=== PATIENT | male | born 1980 | race Caucasian/White ===

== ENCOUNTER 2017-11-17 22:37 | Emergency (ER) | payer MEDICAID ==
[2017-11-17 22:41] VITALS: BP 115/73; PULSE 82; RESP 18; TEMP 97.7; O2SAT 95
[2017-11-17] MEDS ORDERED: CHLORDIAZEPOXIDE 25MG PREPK#6 BTL TAKEHOME ONE (23:33)
--- NOTE | 2017-11-17 23:35 | EDPHY ---
H & P Time Seen by Provider: 11/17/17 23:17 HPI/ROS: CHIEF COMPLAINT: Heroin withdrawal HISTORY OF PRESENT ILLNESS: 37-year-old male presents to the emergency department by private vehicle with symptoms of heroin withdrawal. Patient feels anxious, feels nauseous, abdominal pain, diffuse myalgias. He has been staying at the [facility] for last few days. His last use of heroin was over 24 hr ago. He was sent to the emergency department for evaluation and for prepack of Librium to take with him back to the [facility] so his withdrawal symptoms could be treated. He denies chest pain or difficulty breathing. No history of vomiting or diarrhea. REVIEW OF SYSTEMS: Constitutional: No fever, no chills. Eyes: No double or blurry vision. ENT: No sore throat. Respiratory: No cough, no shortness of breath. Cardiac: No chest pain. Gastrointestinal: No abdominal pain, vomiting or diarrhea. Genitourinary: No dysuria. Musculoskeletal: No neck or back pain. Skin: No rashes. Neurological: No headache. Past Medical/Surgical History: Substance abuse Social History: Single and lives in [place] Smoking Status: Heavy smoker Physical Exam: General Appearance: Alert, no distress. Vital signs are stable. No signs of trauma to his head. Eyes: Pupils equal and round. Extraocular motions are all intact. ENT: Mouth: Mucous membranes moist. Respiratory: No wheezing, rhonchi, or rales, lungs are clear to auscultation. Cardiovascular: Regular rate and rhythm. Gastrointestinal: Abdomen is soft and nontender, no masses, no rebound or guarding, bowel sounds normal. Neurological: Alert and oriented x 3, cranial nerves II through XII grossly intact Skin: Warm and dry, no rashes. Musculoskeletal: Nontender to palpate along the cervical, thoracic or lumbar spine. Neck is supple. Extremities: Full range of motion and no peripheral edema. Psychiatric: Patient is oriented X 3, there is no agitation. Constitutional: Initial Vital Signs Temperature (C) 36.5 C 11/17/17 22:38 Heart Rate 82 11/17/17 22:38 Respiratory Rate 18 11/17/17 22:38 Blood Pressure 115/73 11/17/17 22:38 O2 Sat (%) 95 11/17/17 22:38 O2 Delivery Mode Room Air Allergies/Adverse Reactions: No Known Allergies Allergy (Unverified 11/17/17 22:38) Home Medications: Medication Instructions Recorded NK [No Known Home Meds] 11/17/17 Medical Decision Making ED Course/Re-evaluation: We did speak with the addiction recovery says her. The patient is welcome back to the [facility]. They are requesting a prepack of Librium for him to take with him to go back to the [facility]. I do not think the patient needs an IV or IV fluids. I do not think laboratory studies are indicated. Patient has not been vomiting. He is tolerating p.o. Fluids. He will be discharged to the [facility]. Differential Diagnosis: Including but not limited to heroin withdrawal, electrolyte abnormality, substance abuse, anaphylaxis, myocardial infarction - Data Points Medications Given: Discontinued Medications Chlordiazepoxide (Librium 25 Mg Prepack#6) 1 btl TAKEHOME EDNOW ONE Stop: 11/17/17 23:34 Last Admin: 11/17/17 23:40 Dose: 1 btl Departure - Departure Disposition: Home, Routine, Self-Care Clinical Impression: Heroin withdrawal Condition: Good Instructions: Polysubstance Abuse (ED) Additional Instructions: You were given a take home pack of Librium for you to take to the [facility] for your heroin withdrawal symptoms. Referrals: [facility] Detox 24 Hours [Outside] - As per Instructions
== END 2017-11-17 23:59 | disposition home or self-care (01) ==
DX: F11.23 Opioid dependence with withdrawal (principal)

== ENCOUNTER 2018-01-23 17:45 | Emergency (ER) | payer MEDICAID ==
[2018-01-23 17:51] VITALS: BP 115/77
--- NOTE | 2018-01-23 18:07 | EDPHY ---
H & P Stated Complaint: FROM [facility] Time Seen by Provider: 01/23/18 18:00 HPI/ROS: CHIEF COMPLAINT: Narcotic withdrawal HISTORY OF PRESENT ILLNESS: The patient presents the emergency department from the [facility] requesting Librium. He is currently at that facility for treatment of narcotic withdrawal. He last used narcotics on Friday. He has had associated symptoms of nausea and tremor. The patient denies any chest pain or difficulty breathing. He denies additional acute complaints. The patient takes no regular medications. REVIEW OF SYSTEMS: A comprehensive 10 point review of systems is otherwise negative aside from elements mentioned in the history of present illness. Source: Patient Exam Limitations: No limitations - Personal History Current Tetanus Diphtheria and Acellular Pertussis (TDAP): Yes - Medical/Surgical History Hx Asthma: No Hx Chronic Respiratory Disease: No Hx Diabetes: No Hx Cardiac Disease: No Hx Renal Disease: No Hx Cirrhosis: No Hx Alcoholism: No Hx HIV/AIDS: No Hx Splenectomy or Spleen Trauma: No Other PMH: heroin use - Social History Smoking Status: Heavy smoker - Physical Exam Exam: General Appearance: Alert, no distress Eyes: Pupils equal and round no pallor or injection ENT, Mouth: Poor dentition Respiratory: There are no retractions, lungs are clear to auscultation Cardiovascular: Regular rate and rhythm Gastrointestinal: Abdomen is soft and nontender, no masses, bowel sounds normal Neurological: A&O, normal motor function, normal sensory exam, normal cranial nerves Skin: Warm and dry, no rashes, is multiple tattoos Musculoskeletal: Neck is supple nontender Extremities: symmetrical, full range of motion Constitutional: Initial Vital Signs Temperature (C) 36.9 C 01/23/18 17:48 Heart Rate 88 01/23/18 17:48 Respiratory Rate 16 01/23/18 17:48 Blood Pressure 115/77 01/23/18 17:48 O2 Sat (%) 94 01/23/18 17:48 Allergies/Adverse Reactions: No Known Allergies Allergy (Unverified 11/17/17 22:38) Home Medications: Medication Instructions Recorded NK [No Known Home Meds] 11/17/17 Medical Decision Making ED Course/Re-evaluation: The patient presents to the ED with symptoms of mild narcotic withdrawal. He will be provided a Librium prepack. He is discharged back to the [facility]. He is given customary aftercare instructions and return precautions. Departure - Departure Disposition: Home, Routine, Self-Care Clinical Impression: Narcotic withdrawal Condition: Good Instructions: Opioid Withdrawal (ED) Additional Instructions: 1. Return to the ED for markedly worsening symptoms, uncontrolled vomiting or other concerns. 2. Continue to follow up with the [facility] as scheduled. Referrals: [facility] 24 Hours [Outside] - As per Instructions
[2018-01-23] MEDS ORDERED: CHLORDIAZEPOXIDE 25MG PREPK#6 BTL TAKEHOME ONE (18:08)
== END 2018-01-23 18:25 | disposition home or self-care (01) ==
DX: F11.23 Opioid dependence with withdrawal (principal); F17.200 Nicotine dependence, unspecified, uncomplicated